=== PATIENT | female | born 1985 | race Caucasian/White ===

== ENCOUNTER 2017-06-20 09:07 | Emergency (ER) | payer OTHER ==
[2017-06-20 09:51] LABS: BILIRUBIN NEGATIVE (NEGATIVE); BLOOD 3+ Ery/uL (NEGATIVE); CLARITY CLEAR (CLEAR); COLOR YELLOW (YELLOW); GLUCOSE (U) NORMAL (NORMAL); KETONE (U) NEGATIVE (NEGATIVE); LEUKOCYTES NEGATIVE Leu/uL (NEGATIVE); NITRITE NEGATIVE (NEGATIVE); PROTEIN NEGATIVE (NEGATIVE); SPECIFIC GRAVITY >=1.030 (1.001-1.030); UROBILINOGEN 0.2 mg/dL (0.2-1.0)
[2017-06-20 09:51] LABS: BASOPHIL 0.2 % (0-2); EOSINOPHIL 0.5 % (0-5); HCT 37.5 % (37.0-47.0); HGB 12.8 g/dl (12.5-16.0); LYMPHOCYTE 24.7 % (15-48); MCH 31.3 pg (25.0-31.0); MCHC 34.1 g/dL (32.0-36.0); MCV 91.7 fL (78.0-100.0); MONOCYTE 10.4 % (0-12); MPV 9.6 fL (6.0-9.5); NEUTROPHIL 64.2 % (41-80); PLT 226 K/uL (150-400); RBC 4.09 M/uL (4.20-5.40); RDW 13.8 % (11.5-14.0); WBC 6.5 K/uL (4.0-10.5)
[2017-06-20 09:56] LABS: BACTERIA TRACE; URINARY RBC 20-50; URINARY WBC RARE
[2017-06-20 10:05] LABS: LACTIC ACID 1.1 mmol/L (0.5-2.2)
[2017-06-20 10:06] LABS: ALBUMIN 3.7 g/dL (3.5-5.0); BILIRUBIN - TOTAL 0.2 mg/dL (0.1-1.0); CREATININE 0.7 mg/dL (0.5-1.0); GLOBULIN (CALCULATION) 3.3 g/dL (2.2-4.2); POTASSIUM 4.2 mmol/L (3.5-5.1)
== END 2017-06-20 11:18 | disposition home or self-care (01) ==
LOC: FER 09:07
PROVIDERS: Emergency Medicine
DX: K80.50 Calculus of bile duct without cholangitis or cholecystitis without obstruction (principal); Z88.2 Allergy status to sulfonamides; F17.210 Nicotine dependence, cigarettes, uncomplicated; Z79.899 Other long term (current) drug therapy
CPT/HCPCS: 36415; 80053; 81001; 83605; 83690; 85025

== ENCOUNTER 2020-12-25 21:09 | Emergency (ER) | payer OTHER ==
[~2020-12-25 21:09] MED LIST: ADDERALL 20 MG20 MG PO; ALDACTONE25 M1 PO; CYCLOBENZAPRINE10 MG PO; EFFEXOR XR75 MG PO; METRONIDAZOLE500 MG PO; VOLTAREN **OUT75 MG PO
[2020-12-25 21:43] LABS: BILIRUBIN NEGATIVE (NEGATIVE); BLOOD TRACE-INTACT Ery/uL (NEGATIVE); CLARITY CLEAR (CLEAR); COLOR YELLOW (YELLOW); GLUCOSE (U) NORMAL (NORMAL); LEUKOCYTES NEGATIVE Leu/uL (NEGATIVE); NITRITE NEGATIVE (NEGATIVE); PROTEIN NEGATIVE (NEGATIVE); SPECIFIC GRAVITY >=1.030 (1.001-1.030); UROBILINOGEN 0.2 mg/dL (0.2-1.0); pH 5.5 (5.0-9.0)
[2020-12-25 21:46] LABS: BACTERIA TRACE
[2020-12-26 00:24] LABS: BASOPHIL 0.5 % (0-2); EOSINOPHIL 0.5 % (0-5); HCT 40.1 % (37.0-47.0); HGB 13.2 g/dl (12.5-16.0); LYMPHOCYTE 22.5 % (15-48); MCHC 32.9 g/dL (32.0-36.0); MCV 91.1 fL (78.0-100.0); MPV 9.5 fL (6.0-9.5); NEUTROPHIL 68.2 % (41-80); NRBC 0; PLT 299 K/uL (150-400); RDW 14.4 % (11.5-14.0); WBC 9.4 K/uL (4.0-10.5)
[2020-12-26 00:32] LABS: ALBUMIN 3.3 g/dL (3.4-5.0); BILIRUBIN - TOTAL 0.3 mg/dL (0.2-1.0); BUN/CREAT RATIO (CALC) 21.7 RATIO; CREATININE 0.92 mg/dL (0.51-0.95); GLOBULIN (CALCULATION) 4.3 g/dL; POTASSIUM 3.4 mmol/L (3.5-5.1); TOTAL PROTEIN 7.6 g/dL (6.4-8.2)
[2020-12-26] MEDS ORDERED: CIPRO500 MG PO (01:04)
[2020-12-26] MEDS ORDERED: PYRIDIUM100 MG PO (01:04)
== END 2020-12-26 01:13 | disposition home or self-care (01) ==
LOC: FER 21:09
PROVIDERS: Emergency Medicine
DX: N39.0 Urinary tract infection, site not specified (principal); R03.0 Elevated blood-pressure reading, without diagnosis of hypertension; E66.9 Obesity, unspecified; F17.200 Nicotine dependence, unspecified, uncomplicated; Z87.442 Personal history of urinary calculi; Z88.2 Allergy status to sulfonamides
CPT/HCPCS: 36415; 80053; 81001; 85025; 87088

== ENCOUNTER 2021-10-28 10:14 | Emergency (ER) | payer OTHER ==
[~2021-10-28 10:14] MED LIST changes: +CIPRO500 MG PO; +PYRIDIUM100 MG PO
[2021-10-28] MEDS ORDERED: AUGMENTIN 500-1 EACH PO (14:31)
== END 2021-10-28 15:28 | disposition home or self-care (01) ==
LOC: FER 10:14
DX: S51.812A Laceration without foreign body of left forearm, initial encounter (principal); S61.512A Laceration without foreign body of left wrist, initial encounter; S41.152A Open bite of left upper arm, initial encounter; S61.032A Puncture wound without foreign body of left thumb without damage to nail, initial encounter; S93.402A Sprain of unspecified ligament of left ankle, initial encounter; Z23 Encounter for immunization; Z87.891 Personal history of nicotine dependence; Z88.2 Allergy status to sulfonamides; Z88.5 Allergy status to narcotic agent; W54.0XXA Bitten by dog, initial encounter; W19.XXXA Unspecified fall, initial encounter; Y92.89 Other specified places as the place of occurrence of the external cause
CPT/HCPCS: 73090; 73130; 73610; 90471; 90715; 96374; 96375; 96376; J1170; J2270; J2405